=== PATIENT | female | born 1935 | race Caucasian/White ===

== ENCOUNTER 2016-09-07 01:13 | Inpatient (IN) | payer OTHER ==
[~2016-09-07] VITALS: Ht 167.6 cm; Wt 78.0 kg
[2016-09-07 01:45] LABS: EOSINOPHIL (%) 0.1 % (0-5); HEMATOCRIT 36.8 % (36.0-46.0); IMMATURE GRANULOCYTE (%) 0.7 % (0.0-0.7); IMMATURE GRANULOCYTE COUNT 0.1 K/uL; INSTRUMENT ABS NEUTROPHIL CT 10.1 K/uL; LYMPHOCYTE COUNT 1.4 K/uL (1.0-2.8); MCH 29.4 PG (29.0-34.0); MCHC 32.1 G/DL (30.0-36.0); MCV 91.8 FL (83-99); MONOCYTE (%) 3.9 % (3-12); MONOCYTE COUNT 0.5 K/uL (0-0.8); NEUTROPHIL (%) 83.3 % (45-76); NEUTROPHIL COUNT 10.1 K/uL (1.8-6.4); PLATELET COUNT 257 K/uL (156-360); RBC DIS.WIDTH-CV 13.4 % (11.8-14.6); RBC DIS.WIDTH-SD 45.8 % (39-53); RED BLOOD COUNT 4.01 M/uL (3.80-5.20); WHITE BLOOD COUNT 12.2 K/uL (4.1-10.2)
[2016-09-07 03:00] VITALS: BP 162/70
[2016-09-07 07:05] LABS: POINT-OF-CARE METER ID UU14188577
[2016-09-07 07:11] VITALS: BP 122/74
[2016-09-07] MEDS ORDERED: LISINOPRIL5 MG PO (09:04)
[2016-09-07] MEDS ORDERED: METOPROLOL TART25 MG PO (09:04)
[2016-09-07] MEDS ORDERED: AMIODARONE HCL200 MG PO (09:05)
[2016-09-07] MEDS ORDERED: LIPITOR40 MG PO (09:05)
[2016-09-07] MEDS ORDERED: LEVO-T112 MCG PO (09:05)
[2016-09-07] MEDS ORDERED: PRADAXA150 MG PO (09:33)
[2016-09-07 10:58] VITALS: BP 144/78
[2016-09-07 11:23] VITALS: BP 145/65
[2016-09-07 14:55] VITALS: BP 143/65
[2016-09-07 16:06] LABS: POINT-OF-CARE METER ID UU14188577
[2016-09-07 20:00] VITALS: BP 117/58
[2016-09-08] VITALS (7 sets, daily range): BP systolic 120–159; BP diastolic 57–75
[2016-09-08 05:49] LABS: POINT-OF-CARE METER ID UU14188577
[2016-09-08 12:27] LABS: POINT-OF-CARE METER ID UU14149397
[2016-09-08 17:18] LABS: POINT-OF-CARE METER ID UU14149397
[2016-09-09 03:41] VITALS: BP 140/63
[2016-09-09 08:05] LABS: HEMATOCRIT 34.3 % (36.0-46.0); MCH 29.4 PG (29.0-34.0); MCHC 30.9 G/DL (30.0-36.0); MCV 95.3 FL (83-99); MEAN PLAT.VOLUME 10.2 uM^3 (9.5-12.4); PLATELET COUNT 195 K/uL (156-360); RBC DIS.WIDTH-CV 13.5 % (11.8-14.6); RBC DIS.WIDTH-SD 47.9 % (39-53)
[2016-09-09 08:12] LABS: ANION GAP 4 MEQ/L (2-14); CHLORIDE 107 MEQ/L (99-109); GFR ESTIMATE (CALCULATED) > 59 mL/min/; GLUCOSE 106 mg/dL (70-99); POTASSIUM 4.4 MEQ/L (3.7-5.4); SAMPLE HEMOLYSIS CHECK 0; SAMPLE ICTERIC CHECK 0; SAMPLE LIPEMIA CHECK 0; SODIUM 139 MEQ/L (136-147); UREA NITROGEN (BUN) 18 mg/dL (9-23)
[2016-09-09 08:33] VITALS: BP 154/63
[2016-09-09 09:17] LABS: WHITE BLOOD COUNT 6.6 K/uL (4.1-10.2)
[2016-09-09 11:02] VITALS: BP 135/58
[2016-09-09 15:52] VITALS: BP 121/58
[2016-09-09 19:32] VITALS: BP 108/55
[2016-09-09 23:12] VITALS: BP 135/60
[2016-09-10 03:50] VITALS: BP 118/55
[2016-09-10 06:02] LABS: POINT-OF-CARE METER ID UU14188577
[2016-09-10 07:40] VITALS: BP 134/59
[2016-09-10 11:30] VITALS: BP 116/58
[2016-09-10] MEDS ORDERED: OXYCODONE-APAP1 EACH PO (13:16)
[2016-09-10 15:04] LABS: PROTHROMBIN TIME 9.9 (9.2-11.2)
[2016-09-10 15:07] VITALS: BP 120/76
[2016-09-10 15:27] LABS: PTT 18.4 (25-32)
[2016-09-10 19:20] VITALS: BP 115/56
[2016-09-10 23:56] VITALS: BP 135/61
[2016-09-11 04:20] VITALS: BP 108/53
[2016-09-11 05:55] LABS: HEMATOCRIT 33.6 % (36.0-46.0); MCH 29.6 PG (29.0-34.0); MCHC 31.3 G/DL (30.0-36.0); MCV 94.6 FL (83-99); MEAN PLAT.VOLUME 10.4 uM^3 (9.5-12.4); PLATELET COUNT 214 K/uL (156-360); RBC DIS.WIDTH-CV 13.2 % (11.8-14.6); RBC DIS.WIDTH-SD 46.5 % (39-53); RED BLOOD COUNT 3.55 M/uL (3.80-5.20)
[2016-09-11 06:14] LABS: ANION GAP 5 MEQ/L (2-14); CHLORIDE 102 MEQ/L (99-109); GFR ESTIMATE (CALCULATED) 57 mL/min/; GLUCOSE 113 mg/dL (70-99); POTASSIUM 5.1 MEQ/L (3.7-5.4); SAMPLE HEMOLYSIS CHECK 0; SAMPLE ICTERIC CHECK 0; SAMPLE LIPEMIA CHECK 0; SODIUM 137 MEQ/L (136-147); UREA NITROGEN (BUN) 25 mg/dL (9-23)
[2016-09-11 06:24] LABS: POINT-OF-CARE METER ID UU14149397
[2016-09-11 07:57] VITALS: BP 135/59
[2016-09-11 15:23] VITALS: BP 120/58
[2016-09-11 18:47] LABS: POINT-OF-CARE METER ID UU14188577
[2016-09-11 19:36] VITALS: BP 124/69
[2016-09-11 23:26] VITALS: BP 118/57
[2016-09-12 00:07] LABS: POINT-OF-CARE METER ID UU14188577
[2016-09-12 06:39] LABS: HEMATOCRIT 35.8 % (36.0-46.0); MCH 28.6 PG (29.0-34.0); MCHC 31.8 G/DL (30.0-36.0); PLATELET COUNT 269 K/uL (156-360); RBC DIS.WIDTH-CV 13.3 % (11.8-14.6); RED BLOOD COUNT 3.99 M/uL (3.80-5.20)
[2016-09-12 06:44] LABS: POINT-OF-CARE METER ID UU14149397
[2016-09-12 06:45] LABS: ANION GAP 10 MEQ/L (2-14); CHLORIDE 103 MEQ/L (99-109); GFR ESTIMATE (CALCULATED) 42 mL/min/; GLUCOSE 147 mg/dL (70-99); POTASSIUM 4.2 MEQ/L (3.7-5.4); SAMPLE HEMOLYSIS CHECK 0; SAMPLE ICTERIC CHECK 0; SAMPLE LIPEMIA CHECK 0; SODIUM 136 MEQ/L (136-147)
[2016-09-12 06:53] LABS: UREA NITROGEN (BUN) 42 mg/dL (9-23)
[2016-09-12 07:16] LABS: MCV 89.7 FL (83-99); WHITE BLOOD COUNT 5.3 K/uL (4.1-10.2)
[2016-09-12 08:01] LABS: FERRITIN 251 NG/ML (10-291); IRON < 10 MCG/DL (35-150)
[2016-09-12 08:29] VITALS: BP 115/59
[2016-09-12 08:30] LABS: BASE EXCESS 1.4 mEq/L (-3 to +3); BICARBONATE 24.7 mEq/L (22-26); CARBOXY HGB 1.6 % (0-5); METHEMOGLOBIN 2.1 % (0-1.5); PCO2 34 mm Hg (35-45); PO2 56 mm Hg (80-100); pH 7.47 (7.35-7.45)
[2016-09-12 08:31] LABS: COMMENTS - BLOOD GASES A+C+; DEVICE NC; O2 FLOW 7 L/MIN; SITE LR; TOTAL RESP RATE 28 resp/min
[2016-09-12 11:01] LABS: POINT-OF-CARE METER ID UU14149397
[2016-09-12 12:43] VITALS: BP 111/56
[2016-09-12 16:15] VITALS: BP 102/56
[2016-09-12 16:20] LABS: ADD MIUA? NO; BILIRUBIN NEGATIVE; BLOOD NEGATIVE; COLOR AMBER ((YELLOW)); GLUCOSE (STRIP) NEGATIVE; KETONES NEGATIVE; LEUKOCYTES NEGATIVE; NITRITE NEGATIVE; PROTEIN (STRIP) NEGATIVE; SPECIFIC GRAVITY 1.021 (1.000-1.030); UCUL ADDED? NO
[2016-09-12 23:17] VITALS: BP 124/70
[2016-09-12 23:23] LABS: POINT-OF-CARE METER ID UU14188577
[2016-09-13 05:33] LABS: ANION GAP 11 MEQ/L (2-14); CHLORIDE 102 MEQ/L (99-109); GFR ESTIMATE (CALCULATED) 46 mL/min/; GLUCOSE 118 mg/dL (70-99); POTASSIUM 3.3 MEQ/L (3.7-5.4); SAMPLE HEMOLYSIS CHECK 0; SAMPLE ICTERIC CHECK 0; SAMPLE LIPEMIA CHECK 0; SODIUM 137 MEQ/L (136-147); UREA NITROGEN (BUN) 55 mg/dL (9-23)
[2016-09-13 06:02] LABS: HEMATOCRIT 34.1 % (36.0-46.0); MCH 29.3 PG (29.0-34.0); MCHC 33.1 G/DL (30.0-36.0); MCV 88.3 FL (83-99); MEAN PLAT.VOLUME 11.1 uM^3 (9.5-12.4); PLATELET COUNT 274 K/uL (156-360); RBC DIS.WIDTH-CV 13.7 % (11.8-14.6); RBC DIS.WIDTH-SD 44.1 % (39-53); RED BLOOD COUNT 3.86 M/uL (3.80-5.20)
[2016-09-13 06:03] LABS: WHITE BLOOD COUNT 9.8 K/uL (4.1-10.2)
[2016-09-13 06:10] LABS: POINT-OF-CARE METER ID UU14188577
[2016-09-13 07:43] LABS: BASE EXCESS 3.5 mEq/L (-3 to +3); BICARBONATE 26.5 mEq/L (22-26); CARBOXY HGB 1.1 % (0-5); METHEMOGLOBIN 1.6 % (0-1.5); PCO2 34 mm Hg (35-45)
[2016-09-13 07:44] LABS: COMMENTS - BLOOD GASES A+C+; DEVICE HHFNC; O2 FLOW 20 L/MIN; PO2 87 mm Hg (80-100); SITE LR
[2016-09-13 07:45] LABS: FI02 100 %; TOTAL RESP RATE 24 resp/min
[2016-09-13 08:06] VITALS: BP 108/62
[2016-09-13 17:23] VITALS: BP 127/98
[2016-09-13 19:44] VITALS: BP 133/64
== END 2016-09-13 19:42 | disposition short-term general hospital (02) | DRG 183 ==
LOC: EME 01:13 → EDOF 01:52 → 3EAST 01:52
PROVIDERS: Emergency Medicine; Hospitalist; Internal Medicine; Nurse Practitioner Family; Radiology Diagnostic Radiology
PROC: 0W993ZZ Drainage of Right Pleural Cavity, Percutaneous Approach (ICD-10-PCS; principal; 2016-09-10)
DX: S22.43XA Multiple fractures of ribs, bilateral, initial encounter for closed fracture (principal); I48.0 Paroxysmal atrial fibrillation; I10 Essential (primary) hypertension; S27.2XXA Traumatic hemopneumothorax, initial encounter; G92 Toxic encephalopathy; T40.2X5A Adverse effect of other opioids, initial encounter; I50.9 Heart failure, unspecified; Y92.239 Unspecified place in hospital as the place of occurrence of the external cause; K59.03 Drug induced constipation; E03.9 Hypothyroidism, unspecified; E78.5 Hyperlipidemia, unspecified; V80.010A Animal-rider injured by fall from or being thrown from horse in noncollision accident, initial encounter; Y93.52 Activity, horseback riding; I42.9 Cardiomyopathy, unspecified; G89.11 Acute pain due to trauma; M47.9 Spondylosis, unspecified; K56.7 Ileus, unspecified; J90 Pleural effusion, not elsewhere classified; J98.11 Atelectasis; E66.9 Obesity, unspecified; Z68.24 Body mass index [BMI] 24.0-24.9, adult; J96.01 Acute respiratory failure with hypoxia; D64.9 Anemia, unspecified; E87.6 Hypokalemia; J18.9 Pneumonia, unspecified organism; B37.0 Candidal stomatitis
CPT/HCPCS: 36600; 70450; 71010; 71020; 72131; 74000; 74020; 74176; 76604; 80048; 81003; 82607; 82728; 82746; 82803; 82948; 83540; 83880; 84443; 84466; 85025; 85027; 85610; 85730; 87040; 93005; 93306; 94640; 94640 76; 94667; 94668; 94799; 97530 GP; 99202; 99281; 99284; C9113; J0696; J1200; J1815; J1940; J2270; J2405; J3010; J7030; J7050